=== PATIENT | female | born 1950 | race Caucasian/White ===

== ENCOUNTER 2018-01-31 08:41 | Outpatient (CLI) | payer OTHER | END 2018-01-31 09:00 | disposition home or self-care (01) | LOC: NUCLEAR 08:41 | DX: R07.89 Other chest pain (principal); I25.10 Atherosclerotic heart disease of native coronary artery without angina pectoris | CPT/HCPCS: 78452; 93017; A9500 ==

== ENCOUNTER 2023-04-18 12:46 | Emergency (ER) | payer OTHER ==
[~2023-04-18] VITALS: Ht 157.5 cm; Wt 61.2 kg
[2023-04-18] MEDS ORDERED: GLUMETZA500 MG (13:35)
[2023-04-18] MEDS ORDERED: OZEMPIC0.25 MG/01 (13:37)
== END 2023-04-18 19:40 | disposition home or self-care (01) ==
LOC: ER 12:46
DX: K52.1 Toxic gastroenteritis and colitis (principal); T38.3X5A Adverse effect of insulin and oral hypoglycemic [antidiabetic] drugs, initial encounter; Y92.89 Other specified places as the place of occurrence of the external cause; E11.9 Type 2 diabetes mellitus without complications; Z79.84 Long term (current) use of oral hypoglycemic drugs
CPT/HCPCS: 36415; 96365; 99283; J3490

== ENCOUNTER 2024-11-26 12:57 | Emergency (ER) | payer OTHER ==
[~2024-11-26] VITALS: Ht 157.5 cm; Wt 61.2 kg
[~2024-11-26 12:57] MED LIST: GLUMETZA500 MG; OZEMPIC0.25 MG/01
[2024-11-26] MEDS ORDERED: METFORMIN HCL1000 M3 PO (13:39)
[2024-11-26] MEDS ORDERED: ALPRAZOLAM2 MG PO (13:39)
[2024-11-26] MEDS ORDERED: ASPIRIN 325 MG TABLET.EC PO STA (13:44)
[2024-11-26] MEDS ORDERED: ONDANSETRON HCL 2 MG/ML VIAL ONE (13:56)
[2024-11-26 14:54] LABS: HEMATOCRIT 44.9 % (36.0-45.00); HEMOGLOBIN 15.4 g/dL (12.0-15.00); MEAN CELL VOLUME 87.6 fL (80.00-100.00); MEAN CORPUSCULAR HEMOGLOBIN 30.1 pg (27.00-32.0); MEAN CORPUSCULAR HGB CONC 34.3 g/dl (32.0-36.0); PLATELET COUNT 210 K/uL (150-450); RED BLOOD COUNT 5.13 M/uL (4.00-6.00); RED CELL DISTRIBUTION WIDTH 13.8 % (11.5-14.5)
[2024-11-26 15:10] LABS: INR 1.08; PARTIAL THROMBOPLASTIN TIME 28.1 SECONDS (22.0-34.0); PROTHROMBIN TIME 11.7 SECONDS (9.0-11.5)
[2024-11-26] MEDS ORDERED: ONDANSETRON HCL 2 MG/ML VIAL IV ONE (15:15)
[2024-11-26 16:12] LABS: CREATININE SERUM 0.64 mg/dL (0.55-1.02); GFR 90.71; POTASSIUM 4.21 mEq/L (3.5-5.1)
[2024-11-26] MEDS ORDERED: BUTALB/ACETAMINOPHEN/CAFFEINE 1 TAB TABLET PO ONE ×2 (16:50→17:00)
[2024-11-26] MEDS ORDERED: ZOFRAN8 MG PO (17:59)
[2024-11-26] MEDS ORDERED: ZITHROMAX500 MG PO (17:59)
[2024-11-26] MEDS ORDERED: PEPCID AC20 MG PO (17:59)
== END 2024-11-26 18:17 | disposition home or self-care (01) ==
LOC: ER 12:59
PROVIDERS: Emergency Medicine
DX: B34.9 Viral infection, unspecified (principal); R07.9 Chest pain, unspecified; Z20.822 Contact with and (suspected) exposure to COVID-19; E11.9 Type 2 diabetes mellitus without complications; Z79.84 Long term (current) use of oral hypoglycemic drugs
CPT/HCPCS: 36415; 71045; 93005; 96365; 99283; J2405